=== PATIENT | male | born 1950 ===

== ENCOUNTER 2024-02-20 06:35 | Day surgery (SDC) | payer OTHER ==
[2024-02-13 09:21] LABS: PH,URINE 5.5 (5.0-8.0); URINE APPEARANCE Clear; URINE BILIRRUBIN Negative (NEGATIVE); URINE BLOOD Negative; URINE COLOR Yellow; URINE GLUCOSE Negative (NEGATIVE); URINE KETONE Trace (NEGATIVE); URINE LEUKOCYTE Negative; URINE NITRATE Negative; URINE PROTEIN Negative (NEGATIVE); URINE UROBILINOGEN 0.2 E.U./dl
[2024-02-13 09:26] LABS: URINE BACTERIA 17.6 uL (0.0-1933); URINE RBC 18.1 uL (0.0-20.8); URINE WBC 13.5 uL (0.0-23.2)
[2024-02-13 09:30] LABS: URINE EPITHELIAL CELLS 0.9 uL (0.0-38.8)
[2024-02-13 09:50] LABS: HEMATOCRIT 39.3 % (39.0-48.0); HEMOGLOBIN 13.4 g/dL (13-16.00); MEAN CELL VOLUME 91.7 fL (80.0-100.00); MEAN CORPUSCULAR HEMOGLOBIN 31.4 pg (27.00-32.0); MEAN CORPUSCULAR HGB CONC 34.2 g/dl (32.0-36.0); PLATELET COUNT 142 K/uL (150-450); RED BLOOD COUNT 4.28 M/uL (4.00-6.00); RED CELL DISTRIBUTION WIDTH 13.2 % (11.5-14.5)
[2024-02-13 10:23] LABS: INR 1.04; PARTIAL THROMBOPLASTIN TIME 32.5 SECONDS (22.0-34.0); PROTHROMBIN TIME 11.3 SECONDS (9.0-11.5)
[2024-02-13 10:29] LABS: ALBUMIN 3.6 gm/dL (3.4-5.0); BILIRUBIN TOTAL 0.49 mg/dL (0.3-1.2); CALCIUM 9.3 mg/dL (8.5-10.1); CREATININE SERUM 0.97 mg/dL (0.70-1.30); GFR 75.66; GLOBULINA 3.4 G/DL (2.4-3.5); POTASSIUM 3.79 mEq/L (3.5-5.1)
[2024-02-20] MEDS ORDERED: KETOROLAC TROMETHAMINE 30 MG VIAL ONE (09:23)
[2024-02-20] MEDS ORDERED: CEFAZOLIN SODIUM 1,000 MG VIAL ONE (09:24)
[2024-02-20] MEDS ORDERED: LIDOCAINE HCL 1%/EPINEPHRINE 20ML VIAL IJ ONE (09:24)
[2024-02-20] MEDS ORDERED: SUGAMMADEX SODIUM 200 MG/2 ML VIAL IV ONE (10:11)
== END 2024-02-20 14:00 | disposition home or self-care (01) ==
LOC: CIR.AMB 06:35
PROVIDERS: ATTEND Orthopaedic Surgery
DX: M75.121 Complete rotator cuff tear or rupture of right shoulder, not specified as traumatic (principal); M75.21 Bicipital tendinitis, right shoulder; M24.111 Other articular cartilage disorders, right shoulder; E11.9 Type 2 diabetes mellitus without complications; E03.9 Hypothyroidism, unspecified; I10 Essential (primary) hypertension